=== PATIENT | female | born 1990 | race Two or more races ===

== ENCOUNTER 2018-07-13 21:50 | Emergency (ER) | payer SELFPAY ==
[2018-07-13 21:59] VITALS: BP 128/75
[2018-07-13] MEDS ORDERED: ACYCLOVIR 800 MG TABLET PO ONE (22:08)
[2018-07-13] MEDS ORDERED: PREDNISONE 20 MG TABLET PO ONE (22:08)
--- NOTE | 2018-07-13 22:11 | ER Document Report ---
ED General - General Chief Complaint: Numbness of Face Stated Complaint: FACIAL NUMBNESS Time Seen by Provider: 07/13/18 22:05 Notes: Patient is a 27-year-old female that comes to the emergency department for chief complaint of left-sided facial numbness since yesterday, worsening, she reports difficulty moving her face, closing her left eye, and she was developing some left eye dryness so she went to the pharmacy and started putting moisturizing drops. She denies headache, fever, weakness of the arms, legs, or any other symptoms at this time. She states she thinks something similar happened in the past but she is uncertain. No daily medications, surgeries, or medical history reported otherwise. Patient speaks limited Syriac but her speaks good Syriac and they are requesting that he interpret. TRAVEL OUTSIDE OF THE [place] IN LAST 30 DAYS: No - Related Data Allergies/Adverse Reactions: No Known Allergies Allergy (Unverified 07/13/18 22:10) Past Medical History - General Information source: Patient, Relative - - Social History Smoking Status: Never Smoker Frequency of alcohol use: None Drug Abuse: None Lives with: Family Family History: Reviewed & Not Pertinent - Medical History Medical History: Negative Surgical Hx: Negative - Immunizations Immunizations up to date: Yes Hx Diphtheria, Pertussis, Tetanus Vaccination: Yes Review of Systems - Review of Systems Constitutional: No symptoms reported EENT: See HPI Cardiovascular: No symptoms reported Respiratory: No symptoms reported Gastrointestinal: No symptoms reported Genitourinary: No symptoms reported Female Genitourinary: No symptoms reported Musculoskeletal: No symptoms reported Skin: No symptoms reported Hematologic/Lymphatic: No symptoms reported Neurological/Psychological: See HPI Physical Exam - Vital signs Vitals: Temp Pulse Resp BP Pulse Ox 98.3 F 70 16 128/75 H 98 07/13/18 21:56 07/13/18 21:56 07/13/18 21:56 07/13/18 21:56 07/13/18 21:56 - Notes Notes: GENERAL: Alert, interacts well. No acute distress. HEAD: Normocephalic, atraumatic. EYES: Pupils equal, round, and reactive to light. Extraocular movements intact. ENT: Oral mucosa moist, tongue midline. Oral pharyngeal exam unremarkable. NECK: Full range of motion. Supple. Trachea midline. LUNGS: Clear to auscultation bilaterally, no wheezes, rales, or rhonchi. No respiratory distress. HEART: Regular rate and rhythm. No murmur ABDOMEN: Soft, non-tender. Non-distended. Bowel sounds present in all 4 quadrants. EXTREMITIES: Moves all 4 extremities spontaneously. No edema, normal radial and dorsalis pedis pulses bilaterally. No cyanosis. BACK: no cervical, thoracic, lumbar midline tenderness. No saddle anesthesia, normal distal neurovascular exam. NEUROLOGICAL: Alert and oriented. Paralysis of the nasolabial fold, slight facial droop, numbness over the left side of the face, inability to raise left eyebrow, right eyebrow raising is normal, inability to fully close left eyelid. Unremarkable exam otherwise including normal upper and lower extremity strength and sensation. PSYCH: Normal affect, normal mood. SKIN: Warm, dry, normal turgor. No rashes or lesions noted. Course - Re-evaluation Re-evalutation: Facial paralysis of the left side with flattening of forehead and no other neurological deficits consistent with Peterson's palsy. No other symptoms reported , no other abnormalities noted. Very low suspicion of acute CVA and patient's demographic with no risk factors and with her specific exam indicating Peterson's palsy. Discussed treatments, options, because patient has grade 4 patient will be given antiviral along with prednisone. Discussed treatments, expectations, follow-up, and return precautions with patient and . They state understanding and agreement. - Vital Signs Vital signs: Temp Pulse Resp BP Pulse Ox 98.3 F 70 16 128/75 H 98 07/13/18 21:56 07/13/18 21:56 07/13/18 21:56 07/13/18 21:56 07/13/18 21:56 Discharge - Discharge Clinical Impression: Peterson's palsy, Numbness and tingling of left side of face Condition: Stable Disposition: HOME, SELF-CARE Additional Instructions: Your examination shows Peterson's palsy, this is paralysis of the facial nerve, this is thought to be caused by a virus. This should slowly resolve with time, take medications as prescribed to help with this. You can place tape of your eyelid at night or apply eyedrops to the eye to moisten or both. Follow-up with primary care for additional management. Return for any concerning symptoms including severe headache, weakness on the left side of your body, fever, or any other concerning symptoms. Prescriptions: Acyclovir [Acyclovir 400 mg Tablet] 2 tab PO ASDIR #70 tablet Prednisone 60 mg PO DAILY #21 tablet
[2018-07-13] MEDS ORDERED: ACYCLOVIR 200 MG CAPSULE PO ONE (22:20)
== END 2018-07-13 22:30 | disposition home or self-care (01) ==
LOC: ER 21:50
DX: G51.0 Bell's palsy (principal); R20.0 Anesthesia of skin; R20.2 Paresthesia of skin
CPT/HCPCS: 99283; J7512